=== PATIENT | female | born 1980 | race Caucasian/White ===

== ENCOUNTER 2016-09-22 23:35 | Emergency (ER) | payer SELFPAY ==
--- NOTE | 2016-09-23 00:19 | ED NURSING NOTES ---
Clinical Report - Nurses [facility] [address] [place] [address] 09/22/2016 23:37 Patient: NICHOLE COLMENARES TRIAGE Triage time 23:44. Acuity: LEVEL 4. Chief Complaint: REDNESS TO RIGHT EYE. (swelling, itchy). 23:53 09/22/16. Alert. No acute distress. SEPSIS SCREEN: Sepsis Screen. Negative (no infection suspected/documented). --23:54 Cathie Marquez R.N. 23:43 09/22/16. BP: 117/60. HR: 95. RR: 16. O2 saturation: 100%. Temp: 97.8 F. Pain level now: 05/06. --23:54 Cathie Marquez R.N. Weight: 83 kg stated. Height/Length: 60 inches Per Patient. BMI: 35.7. --23:48 Cathie Marquez R.N. Medications None. --23:52 Cathie Marquez R.N. Allergies Amoxicillin. --23:52 Cathie Marquez R.N. Penicillin. --23:53 Cathie Marquez R.N. History Arrived by private vehicle. Historian: patient. Accompanied by family. Primary physician (No PCP). This started just prior to arrival. She did not sustain an injury. ( Patient states she came in today because her eye began to swell. She states that her R eye has gotten swollen before and was effectively treated with benedryl and epi.). She has had watery discharge from the right eye. She has had right-sided blurred vision. 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 PAST MEDICAL HX: Immunizations: up-to-date. Last normal menstrual period- beginning of July. SOCIAL HX: Never smoker. No alcohol use or drug use. FALL RISK ASSESSMENT: Fall risk assessment completed. No fall risk identified. NUTRITIONAL RISK ASSESSMENT: The nutritional risk assessment revealed no deficiencies. FUNCTIONAL ASSESSMENT: Functional assessment: no impairments noted. LEARNING NEEDS ASSESSMENT: The learning needs assessment revealed no barriers. SKIN INTEGRITY ASSESSMENT: Skin integrity risk assessment completed. No skin integrity risk identified. --23:54 Cathie Marquez R.N. PROBLEMS: no known problems. ADDITIONAL SURGERIES: Cholecystectomy. --23:53 Cathie Marquez R.N. Interventions ID band on patient. To treatment room. --23:54 Cathie Marquez R.N. PHYSICAL ASSESSMENT 23:55 09/22/16. Ambulatory to room. GENERAL / NEURO / PSYCH: Alert. Appears in no acute distress. HEENT: No facial asymmetry noted. Pupils equal, round and reactive to light. Conjunctival findings present: redness of the right conjunctiva and clear exudate present in the right eye. RESPIRATORY: Respirations not labored. CVS: Capillary refill less than 2 seconds. SKIN: Skin is warm and dry. Normal skin turgor. --23:55 Cathie Marquez R.N. NURSING PROGRESS NOTES 23:55 09/22/16. Two patient identifiers checked. Call light placed in reach. Side rails up x 1. Bed placed in lowest position. Brakes of bed on. --23:55 Cathie Marquez R.N. 23:59 09/22/16. ( Patient 20:40 in both eyes, 20:30 in L eye, 20:70 in R eye). --23:59 Cathie Marquez R.N. 00:05 09/23/2016 Proparacaine Eye Drops Opthalmic solution 2 drop given. Given in the right eye. Allergies verified and confirmed 5 rights. (placed at bedside to be given by ED phys). --00:05 Cathie Marquez R.N. 00:06 09/23/2016 FLUORESCEIN Opth soln 1 Strip given. Given in the right eye. Allergies verified and confirmed 5 rights. (Placed at bedside for ED phys). --00:06 Cathie Marquez R.N. DISPOSITION / DISCHARGE 00:23 09/23/16. No learning barriers present. Discharge instructions provided and reviewed with the patient. Reviewed warnings. Reviewed medication(s). Treatments reviewed. Reviewed referrals. Follow up contact number. Patient verbalized understanding. Written instructions provided in [place]. The patient was discharged home and accompanied by family. She left the Emergency Department ambulatory and via private vehicle. Family member driving. --00:23 Cathie Marquez R.N. 23:43 09/22/16. BP: 117/60. HR: 95. RR: 16. O2 saturation: 100%. Temp: 97.8 F. Pain level now: 05/06. --00:23 Cathie Marquez R.N. Departure time: 00:23. --00:23 Cathie Marquez R.N. Locked/Released at 09/23/2016 3:28 by Cathie Marquez R.N.
--- NOTE | 2016-09-23 00:19 | ED CLINICAL REPORT ---
Clinical Report - Physicians/Mid Levels [facility] [address] [place] [address] 09/22/2016 23:37 Patient: NICHOLE COLMENARES Time Seen: 2345. Arrived- By private vehicle. Historian- patient. HISTORY OF PRESENT ILLNESS Chief Complaint: EYE IRRITATION. This started yesterday, involves the right eye, is characterized as moderate in severity and is still present. The patient did not sustain an injury. This occurred at home. Not injured from contact lenses. No direct trauma to the eyes. No chemical exposure, suspected foreign body in eye or UV light exposure. Eye redness and irritation. A moderate amount of watery discharge from the right eye. Eyelid swelling. REVIEW OF SYSTEMS No fever, sore throat or cough. All systems otherwise negative, except as recorded above. PAST HISTORY See nurses notes. Tetanus immunization status is up-to-date. Problems: no known problems. Medications: None. Allergies: Amoxicillin. Penicillin. SOCIAL HISTORY Never smoker. No alcohol use or drug use. ADDITIONAL NOTES The nursing notes have been reviewed. PHYSICAL EXAM Vital Signs: 09/22/2016 23:43 BP: 117/60. HR: 95. RR: 16. O2 saturation: 100%. Temp: 97.8 F. Pain level now: 1/10. Blood pressure normal. Oxygen saturation normal. Appearance: Alert. Oriented X3. No acute distress. HEENT: Ears normal. Nose normal. Pharynx normal. Head appears normal to external inspection. Eyes: Visual acuity noted- see nurse's notes. Pupils equal, round and reactive to light. Accommodation normal. patient with a stye to the medial right upper eyelid. No foreign bodies. Negative Indra sign. No uptake of fluorescein. No cell and flare. Right-sided conjunctival injection. Clear liquid-type discharge. No proptosis of the eye. No periorbital cellulitis. No crepitus. No pain with extraocular movements. No consensual photophobia. Rt Eye: Pupil reactive. Pupil 3mm. Lt Eye: Pupil reactive. Pupil 3mm. Neck: Neck supple. Normal inspection. No lymphadenopathy, meningeal signs or soft tissue tenderness. CVS: Normal heart rate and rhythm. Heart sounds normal. Respiratory: No respiratory distress. Breath sounds normal. Abdomen: Nontender. No organomegaly. : Normal genitalia. Skin: No rash. PROGRESS AND PROCEDURES Course of Care: the patient is a pleasant 36-year-old female presenting for a evaluation of irritation to the right eye. At this time it is difficult to differentiate between conjunctivitis which is either viral or chemical/bacterial or irritation from the potential for hordeolum to the right eyelid. No foreign bodies noted. No deeper infection of the I suspect benefits time. Patient will be treated with antibiotic eye ointment for the discomfort of the eye as well as instructed to use warm compresses for decompression of the sty in the right eye. No signs of orbital cellulitis or iritis. Patient is nontoxic and in no acute distress. Head discussion the patient in regards to her workup here in the emergency department including diagnosis, home care, follow-up, and return precautions. All questions have been answered. The patient expressed understanding of these instructions and was agreeable to them. Disposition: Discharged. Condition: good. CLINICAL IMPRESSION 09/22/2016 23:43 BP: 117/60. HR: 95. RR: 16. O2 saturation: 100%. Temp: 97.8 F. Pain level now: 1/10. Blood pressure normal. Oxygen saturation normal. Acute blepharitis of the right upper eyelid. Acute conjunctivitis of the right eye. INSTRUCTIONS Warnings: GENERAL WARNINGS: Return or contact your physician immediately if your condition worsens or changes unexpectedly, if not improving as expected, or if other problems arise. Specifically return if pain, vomiting, bleeding, breathing difficulty or fever. Your Current Medications: CONTINUE TAKING THE FOLLOWING MEDICATIONS: None*. Prescription Medications: Erythromycin ophthalmic ointment 0.5% : apply 0.5 inch to inner aspect of the lower lid on the affected eye every 4 hours while awake. Dispense three and one half (3.5) grams. No refill. Follow-up: Return to the emergency department as needed. Follow up with your doctor in three days. Reason for referral: recheck today's concerns. Summary of care provided to patient via paper. Screening today revealed the patient's blood pressure to be in the normal range. The patient should follow up with a primary care provider for blood pressure management. Understanding of the discharge instructions verbalized by patient. Follow-up with: Beata Gonzalez MD, Ophthalmology, [facility], [address] [place] [address] Drive - [address], , [place], [facility] Follow up in three days. Reason for referral: recheck today's concerns. Summary of care provided to patient via paper. (Electronically signed by David Vazquez Dr. 09/27/2016 10:06)
--- NOTE | 2016-09-23 00:19 | ED CLINICAL REPORT ---
Clinical Report - Physicians/Mid Levels [facility] [address] [place] [address] 09/22/2016 23:37 Patient: NICHOLE COLMENARES Time Seen: 2345. Arrived- By private vehicle. Historian- patient. HISTORY OF PRESENT ILLNESS Chief Complaint: EYE IRRITATION. This started yesterday, involves the right eye, is characterized as moderate in severity and is still present. The patient did not sustain an injury. This occurred at home. Not injured from contact lenses. No direct trauma to the eyes. No chemical exposure, suspected foreign body in eye or UV light exposure. Eye redness and irritation. A moderate amount of watery discharge from the right eye. Eyelid swelling. REVIEW OF SYSTEMS No fever, sore throat or cough. All systems otherwise negative, except as recorded above. PAST HISTORY See nurses notes. Tetanus immunization status is up-to-date. Problems: no known problems. Medications: None. Allergies: Amoxicillin. Penicillin. SOCIAL HISTORY Never smoker. No alcohol use or drug use. ADDITIONAL NOTES The nursing notes have been reviewed. PHYSICAL EXAM Vital Signs: 09/22/2016 23:43 BP: 117/60. HR: 95. RR: 16. O2 saturation: 100%. Temp: 97.8 F. Pain level now: 1/10. Blood pressure normal. Oxygen saturation normal. Appearance: Alert. Oriented X3. No acute distress. HEENT: Ears normal. Nose normal. Pharynx normal. Head appears normal to external inspection. Eyes: Visual acuity noted- see nurse's notes. Pupils equal, round and reactive to light. Accommodation normal. patient with a stye to the medial right upper eyelid. No foreign bodies. Negative Indra sign. No uptake of fluorescein. No cell and flare. Right-sided conjunctival injection. Clear liquid-type discharge. No proptosis of the eye. No periorbital cellulitis. No crepitus. No pain with extraocular movements. No consensual photophobia. Rt Eye: Pupil reactive. Pupil 3mm. Lt Eye: Pupil reactive. Pupil 3mm. Neck: Neck supple. Normal inspection. No lymphadenopathy, meningeal signs or soft tissue tenderness. CVS: Normal heart rate and rhythm. Heart sounds normal. Respiratory: No respiratory distress. Breath sounds normal. Abdomen: Nontender. No organomegaly. : Normal genitalia. Skin: No rash. PROGRESS AND PROCEDURES Course of Care: the patient is a pleasant 36-year-old female presenting for a evaluation of irritation to the right eye. At this time it is difficult to differentiate between conjunctivitis which is either viral or chemical/bacterial or irritation from the potential for hordeolum to the right eyelid. No foreign bodies noted. No deeper infection of the I suspect benefits time. Patient will be treated with antibiotic eye ointment for the discomfort of the eye as well as instructed to use warm compresses for decompression of the sty in the right eye. No signs of orbital cellulitis or iritis. Patient is nontoxic and in no acute distress. Head discussion the patient in regards to her workup here in the emergency department including diagnosis, home care, follow-up, and return precautions. All questions have been answered. The patient expressed understanding of these instructions and was agreeable to them. Disposition: Discharged. Condition: good. CLINICAL IMPRESSION 09/22/2016 23:43 BP: 117/60. HR: 95. RR: 16. O2 saturation: 100%. Temp: 97.8 F. Pain level now: 1/10. Blood pressure normal. Oxygen saturation normal. Acute blepharitis of the right upper eyelid. Acute conjunctivitis of the right eye. INSTRUCTIONS Warnings: GENERAL WARNINGS: Return or contact your physician immediately if your condition worsens or changes unexpectedly, if not improving as expected, or if other problems arise. Specifically return if pain, vomiting, bleeding, breathing difficulty or fever. Your Current Medications: CONTINUE TAKING THE FOLLOWING MEDICATIONS: None*. Prescription Medications: Erythromycin ophthalmic ointment 0.5% : apply 0.5 inch to inner aspect of the lower lid on the affected eye every 4 hours while awake. Dispense three and one half (3.5) grams. No refill. Follow-up: Return to the emergency department as needed. Follow up with your doctor in three days. Reason for referral: recheck today's concerns. Summary of care provided to patient via paper. Screening today revealed the patient's blood pressure to be in the normal range. The patient should follow up with a primary care provider for blood pressure management. Understanding of the discharge instructions verbalized by patient. Follow-up with: Beata Gonzalez MD, Ophthalmology, [facility], [address] [place] [address] Drive - [address], , [place], [facility] Follow up in three days. Reason for referral: recheck today's concerns. Summary of care provided to patient via paper. (Electronically signed by David Vazquez Dr. 09/27/2016 10:06)
--- NOTE | 2016-09-23 00:19 | ED NURSING NOTES ---
Clinical Report - Nurses [facility] [address] [place] [address] 09/22/2016 23:37 Patient: NICHOLE COLMENARES TRIAGE Triage time 23:44. Acuity: LEVEL 4. Chief Complaint: REDNESS TO RIGHT EYE. (swelling, itchy). 23:53 09/22/16. Alert. No acute distress. SEPSIS SCREEN: Sepsis Screen. Negative (no infection suspected/documented). --23:54 Cathie Marquez R.N. 23:43 09/22/16. BP: 117/60. HR: 95. RR: 16. O2 saturation: 100%. Temp: 97.8 F. Pain level now: 05/06. --23:54 Cathie Marquez R.N. Weight: 83 kg stated. Height/Length: 60 inches Per Patient. BMI: 35.7. --23:48 Cathie Marquez R.N. Medications None. --23:52 Cathie Marquez R.N. Allergies Amoxicillin. --23:52 Cathie Marquez R.N. Penicillin. --23:53 Cathie Marquez R.N. History Arrived by private vehicle. Historian: patient. Accompanied by family. Primary physician (No PCP). This started just prior to arrival. She did not sustain an injury. ( Patient states she came in today because her eye began to swell. She states that her R eye has gotten swollen before and was effectively treated with benedryl and epi.). She has had watery discharge from the right eye. She has had right-sided blurred vision. 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 PAST MEDICAL HX: Immunizations: up-to-date. Last normal menstrual period- beginning of July. SOCIAL HX: Never smoker. No alcohol use or drug use. FALL RISK ASSESSMENT: Fall risk assessment completed. No fall risk identified. NUTRITIONAL RISK ASSESSMENT: The nutritional risk assessment revealed no deficiencies. FUNCTIONAL ASSESSMENT: Functional assessment: no impairments noted. LEARNING NEEDS ASSESSMENT: The learning needs assessment revealed no barriers. SKIN INTEGRITY ASSESSMENT: Skin integrity risk assessment completed. No skin integrity risk identified. --23:54 Cathie Marquez R.N. PROBLEMS: no known problems. ADDITIONAL SURGERIES: Cholecystectomy. --23:53 Cathie Marquez R.N. Interventions ID band on patient. To treatment room. --23:54 Cathie Marquez R.N. PHYSICAL ASSESSMENT 23:55 09/22/16. Ambulatory to room. GENERAL / NEURO / PSYCH: Alert. Appears in no acute distress. HEENT: No facial asymmetry noted. Pupils equal, round and reactive to light. Conjunctival findings present: redness of the right conjunctiva and clear exudate present in the right eye. RESPIRATORY: Respirations not labored. CVS: Capillary refill less than 2 seconds. SKIN: Skin is warm and dry. Normal skin turgor. --23:55 Cathie Marquez R.N. NURSING PROGRESS NOTES 23:55 09/22/16. Two patient identifiers checked. Call light placed in reach. Side rails up x 1. Bed placed in lowest position. Brakes of bed on. --23:55 Cathie Marquez R.N. 23:59 09/22/16. ( Patient 20:40 in both eyes, 20:30 in L eye, 20:70 in R eye). --23:59 Cathie Marquez R.N. 00:05 09/23/2016 Proparacaine Eye Drops Opthalmic solution 2 drop given. Given in the right eye. Allergies verified and confirmed 5 rights. (placed at bedside to be given by ED phys). --00:05 Cathie Marquez R.N. 00:06 09/23/2016 FLUORESCEIN Opth soln 1 Strip given. Given in the right eye. Allergies verified and confirmed 5 rights. (Placed at bedside for ED phys). --00:06 Cathie Marquez R.N. DISPOSITION / DISCHARGE 00:23 09/23/16. No learning barriers present. Discharge instructions provided and reviewed with the patient. Reviewed warnings. Reviewed medication(s). Treatments reviewed. Reviewed referrals. Follow up contact number. Patient verbalized understanding. Written instructions provided in [place]ian. The patient was discharged home and accompanied by family. She left the Emergency Department ambulatory and via private vehicle. Family member driving. --00:23 Cathie Marquez R.N. 23:43 09/22/16. BP: 117/60. HR: 95. RR: 16. O2 saturation: 100%. Temp: 97.8 F. Pain level now: 05/06. --00:23 Cathie Marquez R.N. Departure time: 00:23. --00:23 Cathie Marquez R.N. Locked/Released at 09/23/2016 3:28 by Cathie Marquez R.N.
--- NOTE | 2016-09-23 00:19 | ED ORDER SUMMARY ---
..... Patient: NICHOLE COLMENARES OrderSheet [facility] VisitID: [id number] [address] [place] [address] 36y, F Registration Date/Time: 09/22/2016 ORDER SHEET Weight: 83.0 kg (stated) Allergies: Amoxicillin, Penicillin GENERAL ORDERS: Visual Acuity (23:45 09/22/2016 Shan Schmitt) (23:58 RMarsden R.N.) MEDICATION ORDERS: Proparacaine Eye Drops (Solution 0.5 %) 2 drops (place at bedside) (:45 09/22/2016 Shan Schmitt) (Ack 0:00 RMarsden R.N.) (0:05 RMarsden R.N.) Fluorescein Eye Strips 1 strips (NOW) (23:45 09/22/2016 Shan Schmitt) (Ack 0:00 RMarsden R.N.) (0:06 RMarsden R.N.) IV FLUIDS: ORDER SHEET NOTES: [Electronically signed by Cathie Marquez R.N. (03:09/23/2016)] [Electronically signed by David Vazquez Dr. (10:06 09/27/2016)] [Electronically locked/signed by Cathie Marquez R.N. (:09/23/2016)]
--- NOTE | 2016-09-23 00:19 | ED ORDER SUMMARY ---
..... Patient: NICHOLE COLMENARES OrderSheet [facility] VisitID: [id number] [address] [place] [address] 36y, F Registration Date/Time: 09/22/2016 ORDER SHEET Weight: 83.0 kg (stated) Allergies: Amoxicillin, Penicillin GENERAL ORDERS: Visual Acuity (23:45 09/22/2016 Shan Schmitt) (23:58 RMarsden R.N.) MEDICATION ORDERS: Proparacaine Eye Drops (Solution 0.5 %) 2 drops (place at bedside) (:45 09/22/2016 Shan Schmitt) (Ack 0:00 RMarsden R.N.) (0:05 RMarsden R.N.) Fluorescein Eye Strips 1 strips (NOW) (23:45 09/22/2016 Shan Schmitt) (Ack 0:00 RMarsden R.N.) (0:06 RMarsden R.N.) IV FLUIDS: ORDER SHEET NOTES: [Electronically signed by Cathie Marquez R.N. (03:09/23/2016)] [Electronically signed by David Vazquez Dr. (10:06 09/27/2016)] [Electronically locked/signed by Cathie Marquez R.N. (:09/23/2016)]
--- NOTE | 2016-09-27 10:06 | ED MAR SUMMARY ---
..... Medication Administration Record [facility] [address] [place] [address] Patient: NICHOLE COLMENARES Visit ID: [id number] 36y, F Weight: 83.0 kg Height/Length: 60 in BMI: 35.7 ALLERGIES: Penicillin, Amoxicillin Given 00:05 09/23/2016 Cathie Marquez, RDebbieN. Medication Administered: PROPARACAINE [EYE DROPS], Dose: 2 drop Opthalmic solution Eye Drops. Medication Ordered: Proparacaine Eye Drops (Solution 0.5 %) 2 drops (place at bedside). Given 00:06 09/23/2016 Cathie Marquez, R.N. Medication Administered: FLUORESCEIN [EYE STRIPS], Dose: 1 Strip Opth soln. Medication Ordered: Fluorescein Eye Strips 1 strips (NOW).
--- NOTE | 2016-09-27 10:06 | ED MAR SUMMARY ---
..... Medication Administration Record [facility] [address] [place] [address] Patient: NICHOLE COLMENARES Visit ID: [id number] 36y, F Weight: 83.0 kg Height/Length: 60 in BMI: 35.7 ALLERGIES: Penicillin, Amoxicillin Given 00:05 09/23/2016 Cathie Marquez, RDebbieN. Medication Administered: PROPARACAINE [EYE DROPS], Dose: 2 drop Opthalmic solution Eye Drops. Medication Ordered: Proparacaine Eye Drops (Solution 0.5 %) 2 drops (place at bedside). Given 00:06 09/23/2016 Cathie Marquez, R.N. Medication Administered: FLUORESCEIN [EYE STRIPS], Dose: 1 Strip Opth soln. Medication Ordered: Fluorescein Eye Strips 1 strips (NOW).
--- NOTE | 2016-09-27 10:06 | ED DISCHARGE INSTRUCTIONS ---
Patient: NICHOLE COLMENARES General Instructions [facility] VisitID: [id number] [address] [place] [address] 36y, F Registration Date/Time: 09/22/2016 09/22/2016 23:43 BP: 117/60. HR: 95. RR: 16. O2 saturation: 100%. Temp: 97.8 F. Pain level now: 05/06. Blood pressure normal. Oxygen saturation normal. Acute blepharitis of the right upper eyelid. Acute conjunctivitis of the right eye. INSTRUCTIONS Warnings: GENERAL WARNINGS: Return or contact your physician immediately if your condition worsens or changes unexpectedly, if not improving as expected, or if other problems arise. Specifically return if pain, vomiting, bleeding, breathing difficulty or fever. Your Current Medications: CONTINUE TAKING THE FOLLOWING MEDICATIONS: None*. Prescription Medications: Erythromycin ophthalmic ointment 0.5% : apply 0.5 inch to inner aspect of the lower lid on the affected eye every 4 hours while awake. Dispense three and one half (3.5) grams. No refill. Follow-up: Return to the emergency department as needed. Follow up with your doctor in three days. Reason for referral: recheck today's concerns. Summary of care provided to patient via paper. Screening today revealed the patient's blood pressure to be in the normal range. The patient should follow up with a primary care provider for blood pressure management. Understanding of the discharge instructions verbalized by patient. Follow-up with: Beata Gonzalez MD, Ophthalmology, [facility], [address] [place] [address] - [address] [address] Follow up in three days. Reason for referral: recheck today's concerns. Summary of care provided to patient via paper. ADDITIONAL INFORMATION Meibomian Gland Blockage The meibomian gland is an oil-gland found in the upper and lower eyelid. The oils they secrete layer on top of the tear film. This keeps the tears from evaporating and prevents dry eyes. If these glands become blocked by thickened oils, the eyes will get dry and may cause burning and irritation. A blocked oil gland is prone to infection which causes redness and swelling of the lid. This condition is called blepharitis. Blepharitis can take 6- 12 months to clear up. Home Care: Apply a hot compress (hot water on a face cloth) to the eyelids for 10-20 minutes at least twice a day. This softens the oils and may relieve the blockage. After this treatment, wipe away scales from the lids and apply any prescribed medicine. Use lubricant eye drops (afed-llm-uhzifvc) if your eyes feel dry or burn. If the lids are inflamed, do not wear makeup on your eyelids until the redness and swelling goes away. Use only hypo-allergenic makeup in the future. Unless told otherwise, stop using contact lenses until your condition improves. Sometimes we touch our eyes and face without thinking about it. So, wash your hands regularly and especially before you plan to touch your eyes. Follow Up with your doctor or as advised by our staff. Get Prompt Medical Attention if any of the following occur: Redness of the white part of the eye Redness or swelling of the lids Eye pain or discharge Change in your vision Conjunctivitis, Non-Specific The membrane that covers your eye is inflamed. Any itching, burning or irritation should go away within the next 24 hours. Conjunctivitis may be related to a particle that was in your eye. If so, it was washed out with your tears or irrigation treatment. Being exposed to liquid chemicals or fumes may also cause this reaction. Your condition does not appear to be due to an eye infection. Home Care: Apply a cold pack (ice in a plastic bag, wrapped in a towel) over the eye for 20 minutes at a time. This will reduce pain. Eye drops may be prescribed to reduce irritation or redness. Otherwise, Visine or similar lhgi-voy-bincbsq decongestant eye drops may be used. You may use acetaminophen (Tylenol) or ibuprofen (Motrin, Advil) to control pain, unless another medicine was prescribed. [ NOTE: If you have chronic liver or kidney disease or ever had a stomach ulcer or GI bleeding, talk with your doctor before using these medicines.] Follow Up with your doctor or this facility as directed, or if your symptoms have not improved after 24 hours. Get Prompt Medical Attention if any of the following occur: Increased eyelid swelling Increase in eye pain Increased redness or drainage from the eye Failure of normal vision to return within 24-48 hours. Erythromycin Eye ointment What is this medicine? ERYTHROMYCIN (er ith melissa MYE sin) is a macrolide antibiotic. It is used to treat bacterial eye infections. It also prevents a certain type of eye infection that can occur in some babies. How should I use this medicine? This medicine is only for use in the eye. Follow the directions on the prescription label. Wash hands before and after use. Tilt your head back slightly and pull your lower eyelid down with your index finger to form a pouch. Try not to touch the tip of the tube, to your eye, fingertips, or any other surface. Squeeze the end of the tube to apply a thin layer of the ointment to the inside of the lower eyelid. Close the eye gently to spread the ointment. Your vision may blur for a few minutes. Use your doses at regular intervals. Do not use your medicine more often than directed. Finish the full course prescribed by your doctor or health aged or disabled carer even if you think your condition is better. Do not stop using except on the advice of your doctor or health aged or disabled carer. Talk to your amusement park entertainer regarding the use of this medicine in children. Special care may be needed. What side effects may I notice from receiving this medicine? Side effects that you should report to your doctor or health aged or disabled carer as soon as possible: allergic reactions like skin rash, itching or hives, swelling of the face, lips, or tongue burning, stinging, or itching of the eyes or eyelids changes in vision redness, swelling, or pain What may interact with this medicine? Interactions are not expected. Do not use any other eye products without telling your doctor or health aged or disabled carer. What if I miss a dose? If you miss a dose, use it as soon as you can. If it is almost time for your next dose, use only that dose. Do not use double or extra doses. Where should I keep my medicine? Keep out of the reach of children. Store at room temperature between 15 and 30 degrees C (59 and 86 degrees F). Do not freeze. Throw away any unused ointment after the expiration date. What should I tell my health care provider before I take this medicine? if you have an unusual or allergic reaction to erythromycin, foods, dyes, or preservatives or trying to get breast-feeding What should I watch for while using this medicine? Tell your doctor or health aged or disabled carer if your symptoms do not improve in 2 to 3 days. You have been given the following additional information: Meibomian Gland Blockage Conjunctivitis, Non-Specific Erythromycin Eye ointment (Electronically signed by David Vazquez Dr. 09/27/2016 10:06)
--- NOTE | 2016-09-27 10:06 | ED MED RECONCILIATION SUMMARY ---
Patient: NICHOLE COLMENARES Medication Reconciliation Report [facility] VisitID: [id number] [address] [place] [address] 36y, F Registration Date/Time: 09/22/2016 Weight: 83.0 kg Height/Length: 60 in. BMI: 35.7 ALLERGIES: Amoxicillin, Penicillin The patient's Home Medications are listed below: NONE. The source(s) of the original Home Medication information: Not obtained. The following Medications were given to the patient in the Emergency Department: Proparacaine [Eye Drops] Eye Drops 2 drop, administered: 09/23/2016 12:05:00 AM FLUORESCEIN [EYE STRIPS] Opth soln 1 Strip, administered: 09/23/2016 12:06:00 AM The following Medications were prescribed to the patient: Erythromycin ophthalmic ointment 0.5% : apply 0.5 inch to inner aspect of the lower lid on the affected eye every 4 hours while awake. Dispense three and one half (3.5) grams. No refill. -- David Vazquez Dr.
--- NOTE | 2016-09-27 10:06 | ED DISCHARGE INSTRUCTIONS ---
Patient: NICHOLE COLMENARES General Instructions [facility] VisitID: [id number] [address] [place] [address] 36y, F Registration Date/Time: 09/22/2016 09/22/2016 23:43 BP: 117/60. HR: 95. RR: 16. O2 saturation: 100%. Temp: 97.8 F. Pain level now: 05/06. Blood pressure normal. Oxygen saturation normal. Acute blepharitis of the right upper eyelid. Acute conjunctivitis of the right eye. INSTRUCTIONS Warnings: GENERAL WARNINGS: Return or contact your physician immediately if your condition worsens or changes unexpectedly, if not improving as expected, or if other problems arise. Specifically return if pain, vomiting, bleeding, breathing difficulty or fever. Your Current Medications: CONTINUE TAKING THE FOLLOWING MEDICATIONS: None*. Prescription Medications: Erythromycin ophthalmic ointment 0.5% : apply 0.5 inch to inner aspect of the lower lid on the affected eye every 4 hours while awake. Dispense three and one half (3.5) grams. No refill. Follow-up: Return to the emergency department as needed. Follow up with your doctor in three days. Reason for referral: recheck today's concerns. Summary of care provided to patient via paper. Screening today revealed the patient's blood pressure to be in the normal range. The patient should follow up with a primary care provider for blood pressure management. Understanding of the discharge instructions verbalized by patient. Follow-up with: Beata Gonzalez MD, Ophthalmology, [facility], [address] [place] [address] - [address] [address] Follow up in three days. Reason for referral: recheck today's concerns. Summary of care provided to patient via paper. ADDITIONAL INFORMATION Meibomian Gland Blockage The meibomian gland is an oil-gland found in the upper and lower eyelid. The oils they secrete layer on top of the tear film. This keeps the tears from evaporating and prevents dry eyes. If these glands become blocked by thickened oils, the eyes will get dry and may cause burning and irritation. A blocked oil gland is prone to infection which causes redness and swelling of the lid. This condition is called blepharitis. Blepharitis can take 6- 12 months to clear up. Home Care: Apply a hot compress (hot water on a face cloth) to the eyelids for 10-20 minutes at least twice a day. This softens the oils and may relieve the blockage. After this treatment, wipe away scales from the lids and apply any prescribed medicine. Use lubricant eye drops (ovrh-fau-pewejqs) if your eyes feel dry or burn. If the lids are inflamed, do not wear makeup on your eyelids until the redness and swelling goes away. Use only hypo-allergenic makeup in the future. Unless told otherwise, stop using contact lenses until your condition improves. Sometimes we touch our eyes and face without thinking about it. So, wash your hands regularly and especially before you plan to touch your eyes. Follow Up with your doctor or as advised by our staff. Get Prompt Medical Attention if any of the following occur: Redness of the white part of the eye Redness or swelling of the lids Eye pain or discharge Change in your vision Conjunctivitis, Non-Specific The membrane that covers your eye is inflamed. Any itching, burning or irritation should go away within the next 24 hours. Conjunctivitis may be related to a particle that was in your eye. If so, it was washed out with your tears or irrigation treatment. Being exposed to liquid chemicals or fumes may also cause this reaction. Your condition does not appear to be due to an eye infection. Home Care: Apply a cold pack (ice in a plastic bag, wrapped in a towel) over the eye for 20 minutes at a time. This will reduce pain. Eye drops may be prescribed to reduce irritation or redness. Otherwise, Visine or similar vpqy-ira-tvwipse decongestant eye drops may be used. You may use acetaminophen (Tylenol) or ibuprofen (Motrin, Advil) to control pain, unless another medicine was prescribed. [ NOTE: If you have chronic liver or kidney disease or ever had a stomach ulcer or GI bleeding, talk with your doctor before using these medicines.] Follow Up with your doctor or this facility as directed, or if your symptoms have not improved after 24 hours. Get Prompt Medical Attention if any of the following occur: Increased eyelid swelling Increase in eye pain Increased redness or drainage from the eye Failure of normal vision to return within 24-48 hours. Erythromycin Eye ointment What is this medicine? ERYTHROMYCIN (er ith melissa MYE sin) is a macrolide antibiotic. It is used to treat bacterial eye infections. It also prevents a certain type of eye infection that can occur in some babies. How should I use this medicine? This medicine is only for use in the eye. Follow the directions on the prescription label. Wash hands before and after use. Tilt your head back slightly and pull your lower eyelid down with your index finger to form a pouch. Try not to touch the tip of the tube, to your eye, fingertips, or any other surface. Squeeze the end of the tube to apply a thin layer of the ointment to the inside of the lower eyelid. Close the eye gently to spread the ointment. Your vision may blur for a few minutes. Use your doses at regular intervals. Do not use your medicine more often than directed. Finish the full course prescribed by your doctor or health workforce investment act career manager even if you think your condition is better. Do not stop using except on the advice of your doctor or health workforce investment act career manager. Talk to your billing clinician regarding the use of this medicine in children. Special care may be needed. What side effects may I notice from receiving this medicine? Side effects that you should report to your doctor or health workforce investment act career manager as soon as possible: allergic reactions like skin rash, itching or hives, swelling of the face, lips, or tongue burning, stinging, or itching of the eyes or eyelids changes in vision redness, swelling, or pain What may interact with this medicine? Interactions are not expected. Do not use any other eye products without telling your doctor or health workforce investment act career manager. What if I miss a dose? If you miss a dose, use it as soon as you can. If it is almost time for your next dose, use only that dose. Do not use double or extra doses. Where should I keep my medicine? Keep out of the reach of children. Store at room temperature between 15 and 30 degrees C (59 and 86 degrees F). Do not freeze. Throw away any unused ointment after the expiration date. What should I tell my health care provider before I take this medicine? if you have an unusual or allergic reaction to erythromycin, foods, dyes, or preservatives or trying to get breast-feeding What should I watch for while using this medicine? Tell your doctor or health workforce investment act career manager if your symptoms do not improve in 2 to 3 days. You have been given the following additional information: Meibomian Gland Blockage Conjunctivitis, Non-Specific Erythromycin Eye ointment (Electronically signed by David Vazquez Dr. 09/27/2016 10:06)
--- NOTE | 2016-09-27 10:06 | ED MED RECONCILIATION SUMMARY ---
Patient: NICHOLE COLMENARES Medication Reconciliation Report [facility] VisitID: [id number] [address] [place] [address] 36y, F Registration Date/Time: 09/22/2016 Weight: 83.0 kg Height/Length: 60 in. BMI: 35.7 ALLERGIES: Amoxicillin, Penicillin The patient's Home Medications are listed below: NONE. The source(s) of the original Home Medication information: Not obtained. The following Medications were given to the patient in the Emergency Department: Proparacaine [Eye Drops] Eye Drops 2 drop, administered: 09/23/2016 12:05:00 AM FLUORESCEIN [EYE STRIPS] Opth soln 1 Strip, administered: 09/23/2016 12:06:00 AM The following Medications were prescribed to the patient: Erythromycin ophthalmic ointment 0.5% : apply 0.5 inch to inner aspect of the lower lid on the affected eye every 4 hours while awake. Dispense three and one half (3.5) grams. No refill. -- David Vazquez Dr.
== END 2016-09-23 00:23 | disposition home or self-care (01) ==
LOC: ED SRH 23:35
DX: H01.001 Unspecified blepharitis right upper eyelid (principal); H10.31 Unspecified acute conjunctivitis, right eye; Z88.0 Allergy status to penicillin; Z88.1 Allergy status to other antibiotic agents